=== PATIENT | male | born 1990 | race Caucasian/White ===

== ENCOUNTER 2017-04-10 19:53 | Emergency (ER) | payer OTHER ==
--- NOTE | 2017-04-10 21:28 | DIAGNOSTIC IMAGING REPORT ---
PROCEDURE: XR SHOULDER 2 OR MORE VW-LEFT INDICATION: TRAUMA/INJURY TECHNIQUE: Three views. COMPARISON: None. FINDINGS: There mild degenerate change of the acromion and left acromioclavicular joint. Left glenohumeral joint is normal. Osseous structures and joint spaces are otherwise normal. IMPRESSION: 1. Mild degenerative changes. 2. Otherwise negative left shoulder.
--- NOTE | 2017-04-10 21:31 | ED NURSING NOTES ---
Clinical Report - Nurses [facility] [place] [address] 04/10/2017 19:56 Patient: AURELIANO YAN TRIAGE Triage time 20:35 Apr 10 2017. Acuity: LEVEL 4. Chief Complaint: LEFT UPPER EXTREMITY PAIN. Location of symptoms- left shoulder. 20:41 04/10/17. SEPSIS SCREEN: Sepsis Screen. Negative (no infection suspected/documented). CONCEPCIÓN COMA SCORE: Concepción Coma Scale: 15- eyes open spontaneously (4); best verbal response- oriented x 4 (5); best motor response- obeys commands (6). --20:41 Maritza Humphries R.N. 20:35 04/10/17. BP: 116/82 (regular adult cuff) taken on the left arm, while sitting. HR: 72. RR: 16. O2 saturation: 100%. Temp: 98.1 F (oral). Pain level now: 02/01. --20:41 Maritza Humphries R.N. Weight: 122.4 kg stated. Height/Length: 71 inches Per Patient. BMI: 37.7. --20:41 Maritza Humphries R.N. Medications None. --20:39 Maritza Humphries R.N. Allergies No Known Drug Allergy. --20:39 Maritza Humphries R.N. History Arrived by private vehicle. Historian: patient. Accompanied by family. This occurred (Monday). ( Pain is worse rotating upwards, no pain with adduction or abduction). He has had numbness. 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 SOCIAL HX: Never smoker. No alcohol use or drug use. No infectious disease exposure. ABUSE ASSESSMENT: No report of abuse. SELF HARM ASSESSMENT: A self harm assessment was performed. The patient answered "no" to the question "Do you have thoughts of harming or killing yourself?" and "Have you recently had thoughts about harming or killing others?". He has been placed under supervision. --20:41 Maritza Humphries R.N. PROBLEMS: Hypertension. Ingrown Toenail. Sprain. --20:40 Maritza Humphries R.N. ADDITIONAL SURGERIES: no known surgeries. Interventions ID band on patient. To treatment room. --20:41 Maritza Humphries R.N. PHYSICAL ASSESSMENT 20:42 04/10/17. Ambulatory to room. Patient gowned. GENERAL / NEURO / PSYCH: Oriented X 4. Alert. Appears in no acute distress. EXTREMITIES: Extremities exhibit normal ROM. Neuro-vascular status intact to the extremity. No upper extremity edema. Skin is non-tender on the extremities. Left shoulder: tenderness. Limited ROM (diminished external rotation). SKIN: Skin intact. Skin is warm and dry. --20:42 Maritza Humphries R.N. NURSING PROGRESS NOTES 20:42 04/10/17. The plan of care for this patient has been created. Patient gowned. Reassurance given. Two patient identifiers checked. Call light placed in reach. Side rails up x 1. Bed placed in lowest position. Brakes of bed on. Patient ready for evaluation- chart flagged and ED physician notified. --20:42 Maritza Humphries R.N. late entry - 21:15 04/10/17. ( Xray finished, patient and doing fine in room.). --21:22 Maritza Humphries R.N. DISPOSITION / DISCHARGE 21:44 04/10/17. Condition at departure: unchanged. No learning barriers present. Discharge instructions provided and reviewed with the patient. Reviewed medication(s) side effects, precautions, dosing and course information. Prescription(s) given to the patient. Patient verbalized understanding. Written instructions provided in Frisian. The patient was discharged by the physician. He was discharged home and accompanied by spouse. He left the Emergency Department ambulatory and via private vehicle. Spouse driving. --21:44 Maritza Humphries R.N. 21:43 04/10/17. BP: 115/72 (regular adult cuff) taken on the left arm, while sitting. HR: 75. RR: 18. O2 saturation: 99% on room air. Temp: 98.3 F (oral). Pain level now: 0/10. --21:44 Maritza Humphries R.N. Departure time: 21:45 Apr 10 2017. --21:45 Maritza Humphries R.N. Locked/Released at 04/11/2017 6:09 by Maritza Humphries R.N.
--- NOTE | 2017-04-10 21:31 | ED NURSING NOTES ---
Clinical Report - Nurses [facility] [place] [address] 04/10/2017 19:56 Patient: AURELIANO YAN TRIAGE Triage time 20:35 Apr 10 2017. Acuity: LEVEL 4. Chief Complaint: LEFT UPPER EXTREMITY PAIN. Location of symptoms- left shoulder. 20:41 04/10/17. SEPSIS SCREEN: Sepsis Screen. Negative (no infection suspected/documented). CONCEPCIÓN COMA SCORE: Concepción Coma Scale: 15- eyes open spontaneously (4); best verbal response- oriented x 4 (5); best motor response- obeys commands (6). --20:41 Maritza Humphries R.N. 20:35 04/10/17. BP: 116/82 (regular adult cuff) taken on the left arm, while sitting. HR: 72. RR: 16. O2 saturation: 100%. Temp: 98.1 F (oral). Pain level now: 02/01. --20:41 Maritza Humphries R.N. Weight: 122.4 kg stated. Height/Length: 71 inches Per Patient. BMI: 37.7. --20:41 Maritza Humphries R.N. Medications None. --20:39 Maritza Humphries R.N. Allergies No Known Drug Allergy. --20:39 Maritza Humphries R.N. History Arrived by private vehicle. Historian: patient. Accompanied by family. This occurred (Monday). ( Pain is worse rotating upwards, no pain with adduction or abduction). He has had numbness. 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 SOCIAL HX: Never smoker. No alcohol use or drug use. No infectious disease exposure. ABUSE ASSESSMENT: No report of abuse. SELF HARM ASSESSMENT: A self harm assessment was performed. The patient answered "no" to the question "Do you have thoughts of harming or killing yourself?" and "Have you recently had thoughts about harming or killing others?". He has been placed under supervision. --20:41 Maritza Humphries R.N. PROBLEMS: Hypertension. Ingrown Toenail. Sprain. --20:40 Maritza Humphries R.N. ADDITIONAL SURGERIES: no known surgeries. Interventions ID band on patient. To treatment room. --20:41 Maritza Humphries R.N. PHYSICAL ASSESSMENT 20:42 04/10/17. Ambulatory to room. Patient gowned. GENERAL / NEURO / PSYCH: Oriented X 4. Alert. Appears in no acute distress. EXTREMITIES: Extremities exhibit normal ROM. Neuro-vascular status intact to the extremity. No upper extremity edema. Skin is non-tender on the extremities. Left shoulder: tenderness. Limited ROM (diminished external rotation). SKIN: Skin intact. Skin is warm and dry. --20:42 Maritza Humphries R.N. NURSING PROGRESS NOTES 20:42 04/10/17. The plan of care for this patient has been created. Patient gowned. Reassurance given. Two patient identifiers checked. Call light placed in reach. Side rails up x 1. Bed placed in lowest position. Brakes of bed on. Patient ready for evaluation- chart flagged and ED physician notified. --20:42 Maritza Humphries R.N. late entry - 21:15 04/10/17. ( Xray finished, patient and doing fine in room.). --21:22 Maritza Humphries R.N. DISPOSITION / DISCHARGE 21:44 04/10/17. Condition at departure: unchanged. No learning barriers present. Discharge instructions provided and reviewed with the patient. Reviewed medication(s) side effects, precautions, dosing and course information. Prescription(s) given to the patient. Patient verbalized understanding. Written instructions provided in Thai. The patient was discharged by the physician. He was discharged home and accompanied by spouse. He left the Emergency Department ambulatory and via private vehicle. Spouse driving. --21:44 Maritza Humphries R.N. 21:43 04/10/17. BP: 115/72 (regular adult cuff) taken on the left arm, while sitting. HR: 75. RR: 18. O2 saturation: 99% on room air. Temp: 98.3 F (oral). Pain level now: 0/10. --21:44 Maritza Humphries R.N. Departure time: 21:45 Apr 10 2017. --21:45 Maritza Humphries R.N. Locked/Released at 04/11/2017 6:09 by Maritza Humphries R.N.
--- NOTE | 2017-04-10 21:31 | ED ORDER SUMMARY ---
..... Patient: AURELIANO YAN OrderSheet [facility] VisitID: [id number] [place] [address] 27y, M Registration Date/Time: 04/10/2017 ORDER SHEET Weight: 122.4 kg (stated) Allergies: No Known Drug Allergy GENERAL ORDERS: Shoulder 2V or more Left Urgent (20:49 04/10/2017 Joe Cai) ([facility] 20:57 [place]) (20:59 Zachary) MEDICATION ORDERS: IV FLUIDS: ORDER SHEET NOTES: [Electronically signed by Maritza Humphries R.N. (06:09 04/11/2017)] [Electronically signed by Jennifer Khan P.A.-C (13:49 04/11/2017)] [Electronically locked/signed by Maritza Humphries R.N. (06:09 04/11/2017)]
--- NOTE | 2017-04-10 21:31 | ED ORDER SUMMARY ---
..... Patient: AURELIANO YAN OrderSheet [facility] VisitID: [id number] [place] [address] 27y, M Registration Date/Time: 04/10/2017 ORDER SHEET Weight: 122.4 kg (stated) Allergies: No Known Drug Allergy GENERAL ORDERS: Shoulder 2V or more Left Urgent (20:49 04/10/2017 Joe Cai) ([facility] 20:57 [place]) (20:59 Zachary) MEDICATION ORDERS: IV FLUIDS: ORDER SHEET NOTES: [Electronically signed by Maritza Humphries R.N. (06:09 04/11/2017)] [Electronically signed by Jennifer Khan P.A.-C (13:49 04/11/2017)] [Electronically locked/signed by Maritza Humphries R.N. (06:09 04/11/2017)]
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
--- NOTE | 2017-04-11 13:49 | ED DISCHARGE INSTRUCTIONS ---
Patient: AURELIANO YAN General Instructions [facility] VisitID: [id number] [address] [place] [address] 27y, M Registration Date/Time: 04/10/2017 Sprain of the left shoulder. INSTRUCTIONS Apply ice. Elevate affected areas above chest level. (there are no signs of fracture or large shoulder separation from ligaments. He may have still sustained a ligamentous injury, especially injury involving the rotator cuff with a sudden jerking movement. Ice ice and anti-inflammatories, follow-up with orthopedics as suggested.). Prescription Medications: Motrin 800 mg tablets: take 1 tablet orally every 8 hours for 5 days, as needed for pain. Dispense fifteen (15). No refill. Substitution is permissible. Follow-up: Follow up with a specialist. Follow-up with: [facility], , [address], [place], [address] Follow up. Call for the next available appointment. ADDITIONAL INFORMATION Shoulder Sprain A sprain is a stretching or tearing of the ligaments that hold a joint together. A sprain may take up to six weeks to fully heal, depending on how severe it is. Moderate to severe shoulder sprains are treated with a sling or shoulder immobilizer. Minor sprains can be treated without any special support. Home care The following guidelines will help you care for your injury at home: If a sling was provided, leave it in place for the time advised by your doctor. If you are unsure how long to wear it, ask for advice. If the sling becomes loose, adjust it so that your forearm is level with the ground and the shoulder feels well supported. Apply an ice pack (ice cubes in a plastic bag, wrapped in a thin towel) over the injured area for 20 minutes every 12 hours the first day. Continue with ice packs 34 times a day for the next two days, then as needed for the relief of pain and swelling. You may use acetaminophen or ibuprofen to control pain, unless another pain medicine was prescribed.If you have chronic liver or kidney disease or ever had a stomach ulcer or GI bleeding, talk with your doctor before using these medicines. Shoulder joints become stiff if left in a sling for too long. Range of motion exercises should usually be started within the first ten days after injury. Consult your doctor on what type of exercises to do and how soon to start. Follow-up care Follow up with your doctor as directed. Any X-rays you had today dont show any broken bones, breaks, or fractures. Sometimes fractures dont show up on the first X-ray. Bruises and sprains can sometimes hurt as much as a fracture. These injuries can take time to heal completely. If your symptoms dont improve or they get worse, talk with your doctor. You may need a repeat X-ray. When to seek medical care Get prompt medical attention if any of the following occur: Increasing shoulder pain or arm swelling Fingers become cold, blue, numb, or tingly Large amount of bruising of the shoulder or upper arm You have been given the following additional information: Shoulder Sprain (Electronically signed by Jennifer Khan P.A.-C 04/11/2017 13:49)
--- NOTE | 2017-04-11 13:49 | ED DISCHARGE INSTRUCTIONS ---
Patient: AURELIANO YAN General Instructions [facility] VisitID: [id number] [address] [place] [address] 27y, M Registration Date/Time: 04/10/2017 Sprain of the left shoulder. INSTRUCTIONS Apply ice. Elevate affected areas above chest level. (there are no signs of fracture or large shoulder separation from ligaments. He may have still sustained a ligamentous injury, especially injury involving the rotator cuff with a sudden jerking movement. Ice ice and anti-inflammatories, follow-up with orthopedics as suggested.). Prescription Medications: Motrin 800 mg tablets: take 1 tablet orally every 8 hours for 5 days, as needed for pain. Dispense fifteen (15). No refill. Substitution is permissible. Follow-up: Follow up with a specialist. Follow[facility]up with: [facility], , [address], [place], [address] Follow up. Call for the next available appointment. ADDITIONAL INFORMATION Shoulder Sprain A sprain is a stretching or tearing of the ligaments that hold a joint together. A sprain may take up to six weeks to fully heal, depending on how severe it is. Moderate to severe shoulder sprains are treated with a sling or shoulder immobilizer. Minor sprains can be treated without any special support. Home care The following guidelines will help you care for your injury at home: If a sling was provided, leave it in place for the time advised by your doctor. If you are unsure how long to wear it, ask for advice. If the sling becomes loose, adjust it so that your forearm is level with the ground and the shoulder feels well supported. Apply an ice pack (ice cubes in a plastic bag, wrapped in a thin towel) over the injured area for 20 minutes every 12 hours the first day. Continue with ice packs 34 times a day for the next two days, then as needed for the relief of pain and swelling. You may use acetaminophen or ibuprofen to control pain, unless another pain medicine was prescribed.If you have chronic liver or kidney disease or ever had a stomach ulcer or GI bleeding, talk with your doctor before using these medicines. Shoulder joints become stiff if left in a sling for too long. Range of motion exercises should usually be started within the first ten days after injury. Consult your doctor on what type of exercises to do and how soon to start. Follow-up care Follow up with your doctor as directed. Any X-rays you had today dont show any broken bones, breaks, or fractures. Sometimes fractures dont show up on the first X-ray. Bruises and sprains can sometimes hurt as much as a fracture. These injuries can take time to heal completely. If your symptoms dont improve or they get worse, talk with your doctor. You may need a repeat X-ray. When to seek medical care Get prompt medical attention if any of the following occur: Increasing shoulder pain or arm swelling Fingers become cold, blue, numb, or tingly Large amount of bruising of the shoulder or upper arm You have been given the following additional information: Shoulder Sprain (Electronically signed by Jennifer Khan P.A.-C 04/11/2017 13:49)
--- NOTE | 2017-04-11 13:49 | ED MAR SUMMARY ---
..... Medication Administration Record [facility] [address] [place], [place] [id number] Patient: AURELIANO YAN Visit ID: [id number] 27y, M Weight: 122.4 kg Height/Length: 71 in BMI: 37.7 ALLERGIES: No Known Drug Allergy
--- NOTE | 2017-04-11 13:49 | ED MAR SUMMARY ---
..... Medication Administration Record [facility] [address] [place], [place] [id number] Patient: AURELIANO YAN Visit ID: [id number] 27y, M Weight: 122.4 kg Height/Length: 71 in BMI: 37.7 ALLERGIES: No Known Drug Allergy
--- NOTE | 2017-04-11 13:49 | ED MED RECONCILIATION SUMMARY ---
Patient: AURELIANO YAN Medication Reconciliation Report [facility] VisitID: [id number] [place] [address] 27y, M Registration Date/Time: 04/10/2017 Weight: 122.4 kg Height/Length: 71 in. BMI: 37.7 ALLERGIES: No Known Drug Allergy The patient's Home Medications are listed below: NONE. The source(s) of the original Home Medication information: Not obtained. The following Medications were given to the patient in the Emergency Department: None. The following Medications were prescribed to the patient: Motrin 800 mg tablets: take 1 tablet orally every 8 hours for 5 days, as needed for pain. Dispense fifteen (15). No refill. Substitution is permissible. -- Jennifer Khan P.A.-C
--- NOTE | 2017-04-11 13:49 | ED MED RECONCILIATION SUMMARY ---
Patient: AURELIANO YAN Medication Reconciliation Report [facility] VisitID: [id number] [place] [address] 27y, M Registration Date/Time: 04/10/2017 Weight: 122.4 kg Height/Length: 71 in. BMI: 37.7 ALLERGIES: No Known Drug Allergy The patient's Home Medications are listed below: NONE. The source(s) of the original Home Medication information: Not obtained. The following Medications were given to the patient in the Emergency Department: None. The following Medications were prescribed to the patient: Motrin 800 mg tablets: take 1 tablet orally every 8 hours for 5 days, as needed for pain. Dispense fifteen (15). No refill. Substitution is permissible. -- Jennifer Khan P.A.-C
== END 2017-04-10 21:45 | disposition home or self-care (01) ==
LOC: ED SRH 19:53
DX: S43.402A Unspecified sprain of left shoulder joint, initial encounter (principal); V23.4XXA Motorcycle driver injured in collision with car, pick-up truck or van in traffic accident, initial encounter; Y93.55 Activity, bike riding; Y92.410 Unspecified street and highway as the place of occurrence of the external cause; Y99.8 Other external cause status; I10 Essential (primary) hypertension